=== PATIENT | female | born 1960 | race Caucasian/White ===

== ENCOUNTER 2020-03-28 14:29 | Emergency (ER) | payer BC, SELFPAY ==
[2020-03-28] VITALS (9 sets, daily range): BP systolic 126–146; BP diastolic 74–87; PULSE 79–97; RESP 20; TEMP 36.7; O2SAT 94–99
--- NOTE | ~2020-03-28 | XR_ITS ---
EXAMINATION: XR chest 1V 03/28/2020 15:06 INDICATION: Sudden mid sternal chest pain. Syncope. Hypertension. PROCEDURE: AP portable chest COMPARISON: Comparison to multiple prior studies sequentially, with oldest reviewed study dated 06/20. FINDINGS: The lungs are clear. The cardiomediastinal silhouette is within normal limits. There are no pleural effusions. There is no pneumothorax suspected. IMPRESSION: 1: NO ACUTE CARDIOPULMONARY DISEASE. Reviewed, dictated and finalized at location A. DEMONSTRATOR
--- NOTE | 2020-03-28 14:28 | ED.GENADULT ---
HPI - General Adult General Chief complaint: Syncope Stated complaint: syncopal episode Source: patient Mode of arrival: EMS Limitations: no limitations History of Present Illness HPI narrative: 60-year-old female states that she was sitting in a chair at her kitchen table when she developed sudden pressure and shortness of breath in her upper chest, felt faint and tried to move to the floor when she collapsed but states she never lost consciousness. She states she feels fine now. She is never had an episode like this before and she has had no changes in any medications. Onset (ago): minute(s) Treatments prior to arrival: none Related Data Allergies Allergy/AdvReac Type Severity Reaction Status Date / Time Penicillins Allergy Unknown Unknown Verified 03/28/20 14:34 Review of Systems Review of Systems: All systems reviewed & are unremarkable except as noted in HPI and below [facility] Past Medical History Medical History (Updated 03/28/20 @ 16:58 by Miley Carranza PA-C) Chronic vertigo Essential hypertension, benign Insomnia Low vitamin D level Mixed hyperlipidemia Vertigo Family History Family History Mother Hypertension Cerebrovascular accident Family history of diabetes mellitus in first degree relative Family history of dementia, Onset Age: 84 Father Malignant neoplasm of prostate, Onset Age: 90 Family history of diabetes mellitus in first degree relative Cerebrovascular accident Grandparent Cerebrovascular accident Social History Social History Smoking status: Never smoker Alcohol intake: never Exam Const: General: no acute distress and alert Orientation/consciousness: patient oriented x3 HENMT: Head: normal to inspection Eyes: Conjunctivae: conjunctivae normal Pupils: Equal, round and reactive pupils present Neck: Neck: normal visual inspection and no lymphadenopathy Resp: Effort & Inspection: normal respiratory effort Auscultation: clear to auscultation bilaterally Cardio: Rate: regular rate Rhythm: regular rhythm GI: GI Palp: Yes Soft to palpation Skin: General skin exam: normal color Extrem: General: normal to inspection and no pedal edema Psych: Mental Status: mental status grossly normal Affect: normal affect Attitude: cooperative Course Course Emergency Course: Reviewed patient's medical record shows that she has had episodic chest pain in the past attributed at that time to gallbladder disease. Review of labs shows elevated blood sugar and increasing hemoglobin A1c. Discussed with patient she states that she has been having difficulties with her new diabetes medicine. Will hydrate and recheck blood pressures. She still states that she feels fine. Repeat POC glucose was 206. Pt states that is her norm at this time. Vital Signs Vital signs: Vital Signs Temperature 36.7 C 03/28/20 14:27 Pulse Rate 89 03/28/20 14:27 Respiratory Rate 20 03/28/20 14:27 Blood Pressure 146/87 H 03/28/20 14:27 Pulse Oximetry 98 03/28/20 14:27 Temperature 36.7 C 03/28/20 14:27 Pulse Rate 97 03/28/20 14:39 Respiratory Rate 20 03/28/20 14:27 Blood Pressure 135/78 03/28/20 14:39 Pulse Oximetry 98 03/28/20 14:27 Medical Decision Making Vital Signs Vital Signs: Vital Signs Temperature 36.7 C 03/28/20 14:27 Pulse Rate 89 03/28/20 14:27 Respiratory Rate 20 03/28/20 14:27 Blood Pressure 146/87 H 03/28/20 14:27 Pulse Oximetry 98 03/28/20 14:27 Temperature 36.7 C 03/28/20 14:27 Pulse Rate 97 03/28/20 14:39 Respiratory Rate 20 03/28/20 14:27 Blood Pressure 135/78 03/28/20 14:39 Pulse Oximetry 98 03/28/20 14:27 Lab Data Result diagrams: 03/28/20 14:42 03/28/20 14:42 Labs: Lab Results 03/28/20 03/28/20 Range/Units 14:42 14:42 WBC Pending
--- NOTE | 2020-03-28 14:36 | ECG_ITS ---
Measurements Intervals [place] Rate: 87 P: 32 [place]: 178 QRS: 8 QRSD: 98 T: 45 QT: 374 QTc: 450 Interpretive Statements SINUS RHYTHM INCOMPLETE RIGHT BUNDLE BRANCH BLOCK LEFT VENTRICULAR HYPERTROPHY WITH ST-T CHANGE BORDERLINE ECG Electronically Signed On 03-28-2020 15:09:34 CERTIFIED PHLEBOTOMIST by Nico Jimenez D.O.
[2020-03-28 14:48] LABS: Basophils Percent Auto 0.6 % (0.2-1.2); Eosinophils Absolute Auto 0.1 K/mm3 (0-0.3); Eosinophils Percent Auto 1.6 % (0-4.4); Hematocrit 40.6 % (37.0-47.0); Hemoglobin 13.5 g/dL (12.0-15.0); Immature Granulocyte Absolute 0.02 K/mm3 (0.00-0.031); Immature Granulocyte Percent A 0.3 % (0-0.5); Lymphocytes Absolute Auto 2.94 K/mm3 (0.9-3.2); Lymphocytes Percent Auto 43.9 % (18.3-44.2); Mean Corpuscular HGB Conc 33.3 g/dl (32-36); Mean Corpuscular Volume 87.3 fl (80-100); Mean Platelet Volume 10.4 fl (7.4-10.4); Monocytes Absolute Auto 0.5 K/mm3 (0.1-0.6); Monocytes Percent Auto 7.6 % (2.6-8.5); Neutrophils Absolute Auto 3.1 K/mm3 (1.3-6.7); Platelet Count Result 278 k/mm3 (150-375); Red Blood Count 4.65 M/mm3 (4.2-5.4); Red Cell Distribution Width 12.9 % (11.5-14.5); White Blood Count 6.7 K/mm3 (4.5-10.0)
[2020-03-28 15:01] LABS: Anion Gap 12 mmol/L (8-16); Blood Urea Nitrogen 16 mg/dL (7-17); Calcium 9.8 mg/dL (8.4-10.2); Carbon Dioxide 24 mmol/L (22-30); Chloride 104 mmol/L (98-107); Estimated Glomerular Filt Rate > 60; Glucose 250 mg/dL (65-105); Potassium 3.5 mmol/L (3.4-5.0); Sodium 140 mmol/L (137-145)
[2020-03-28] MEDS: SODIUM CHLORIDE 0.9% IV 1,000 ML 999 ML IV CONT (15:47)
[2020-03-28 16:47] LABS: Glucose Point of Care 206 (65-105)
== END 2020-03-28 17:25 | disposition home or self-care (01) ==
PROVIDERS: Emergency Provider Emergency Medicine; PCP Family Medicine
DX: R55 Syncope and collapse (principal); I10 Essential (primary) hypertension; E78.2 Mixed hyperlipidemia; I45.10 Unspecified right bundle-branch block; I51.7 Cardiomegaly
CPT/HCPCS: 36415; 71045; 80048; 82948; 85025; 93005; 96360; 99284; J7030

== ENCOUNTER 2024-05-13 08:15 | Outpatient (RCR) | payer OTHER, SELFPAY | END 2024-07-07 10:11 | disposition home or self-care (01) | LOC: ANHDMC 08:15 | PROVIDERS: PCP Family Medicine; Visit Provider Nurse Practitioner Family | DX: E11.65 Type 2 diabetes mellitus with hyperglycemia (principal); I10 Essential (primary) hypertension; E78.2 Mixed hyperlipidemia; Z71.89 Other specified counseling | CPT/HCPCS: G0108 ==

== ENCOUNTER 2024-07-07 08:14 | Outpatient (CLI) | payer OTHER, SELFPAY ==
--- NOTE | ~2024-07-07 | US_ITS ---
Abdominal Sonogram: Real-time sonographic imaging of the abdomen was performed. Clinical History: Abdominal pain Findings: The liver appears echogenic, with no evidence of mass lesion or bile duct dilatation. Main portal vein demonstrates normal direction of flow. The spleen is normal in size without evidence of focal lesion. The gallbladder is absent, compatible with prior cholecystectomy. The common bile duct measures 4 mm. The visualized pancreas, aorta, and IVC are unremarkable. The right kidney measures 11.5 cm in length and the left kidney measures 11.9 cm. There is no hydronephrosis or renal calculu s. Impression: Diffuse fatty infiltration of the liver. Status post cholecystectomy. Reviewed, dictated and finalized at location . Impression: Diffuse fatty infiltration of the liver. Status post cholecystectomy.
== END 2024-07-07 08:15 | disposition home or self-care (01) ==
PROVIDERS: PCP Family Medicine; Visit Provider Physician Assistant Medical
DX: K76.0 Fatty (change of) liver, not elsewhere classified (principal); Z90.49 Acquired absence of other specified parts of digestive tract; R10.11 Right upper quadrant pain; G89.29 Other chronic pain
CPT/HCPCS: 76700